=== PATIENT | male | born 1995 | race Caucasian/White ===

== ENCOUNTER 2019-03-27 10:09 | Emergency (ER) | payer OTHER, SELFPAY ==
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
== END 2019-03-27 13:30 | disposition home or self-care (01) ==
LOC: ERS 10:09
DX: M62.838 Other muscle spasm (principal); F32.9 Major depressive disorder, single episode, unspecified; F41.9 Anxiety disorder, unspecified; F17.210 Nicotine dependence, cigarettes, uncomplicated; V43.62XA Car passenger injured in collision with other type car in traffic accident, initial encounter
CPT/HCPCS: 72040